=== PATIENT | female | born 1965 | race Caucasian/White ===

== ENCOUNTER 2022-08-10 18:48 | Emergency (ER) | payer MEDICAID, OTHER ==
[2022-08-10 19:02] VITALS: PULSE 102
[2022-08-10] MEDS ORDERED: Sodium Chloride 0.9% 10 ML Syringe FLUSH PRN (19:35)
[2022-08-10] MEDS ORDERED: cefTRIAXone 2 GM in Sodium Chloride 0.9% 50 ML IV ONE (19:36)
[2022-08-10 19:40] VITALS: BP 160/78
[2022-08-10 20:08] LABS: ESTIMATED GFR 104 mL/min (>60)
== END 2022-08-10 20:48 | disposition home or self-care (01) ==
LOC: JP.ED 18:48
DX: L03.116 Cellulitis of left lower limb (principal); F17.210 Nicotine dependence, cigarettes, uncomplicated
CPT/HCPCS: 36415; 80053; 85025; 96365; 99283; J0696; J3490; 99282